=== PATIENT | male | born 1955 | race African-American/Black ===

== ENCOUNTER 2018-10-13 22:02 | Emergency (ER) | payer MEDICARE, MEDICAID ==
[~2018-10-13] VITALS: Ht 170.2 cm; Wt 82.0 kg
[2018-10-13] MEDS ORDERED: QUET400T PO (22:50)
[2018-10-13] MEDS ORDERED: ZYDS20 PO (22:50)
[2018-10-13] MEDS ORDERED: OLANZAPINE 10 MG/VIAL IM ONE (23:45)
[2018-10-13] MEDS ORDERED: DIPHENHYDRAMINE 25MG CAPSULE PO ONE (23:45)
[2018-10-13] MEDS ORDERED: LORAZEPAM 1MG TABLET PO ONE (23:45)
[2018-10-14 03:54] LABS: CHLORIDE 116 mEq/L (98-107)
[2018-10-14 03:59] LABS: ETHANOL BLOOD < 10 mg/dL
[2018-10-14 04:02] LABS: BASOPHILS % 0.1 % (0.0-2.0); EOSINOPHILS % 0.4 % (0.0-5.0); HEMATOCRIT. 50.4 % (42.0-52.0); HEMOGLOBIN. 16.7 g/dL (14.0-18.0); MEAN CORPUSCULAR HEMOGLOBIN 32.8 pg (28.0-32.0); MEAN CORPUSCULAR VOLUME 98.7 fL (80.0-94.0); MEAN PLATELET VOLUME 9.9 fl (7.4-10.4); NEUTROPHILS % 75.5 % (40.0-76.0); PLATELET 171 x1000/uL (130-400)
[2018-10-14 05:05] LABS: *AMPHETAMINES SCREEN URINE NEGATIVE (NEGATIVE); *BARBITURATES SCREEN URINE NEGATIVE (NEGATIVE); *BENZODIAZEPINES SCREEN URINE NEGATIVE (NEGATIVE); *COCAINE SCREEN URINE NEGATIVE (NEGATIVE); METHADONE URINE SCREEN NEGATIVE (NEGATIVE); OPIATES URINE SCREEN NEGATIVE (NEGATIVE)
[2018-10-14 05:07] LABS: CANNABINOID URINE SCREEN NEGATIVE (NEGATIVE); PHENCYCLIDINE URINE SCREEN NEGATIVE (NEGATIVE)
[2018-10-14] MEDS ORDERED: OLANZAPINE 10 MG/VIAL IM ONE ×2 (06:30→07:30)
[2018-10-14] MEDS ORDERED: LORAZEPAM 2MG/ML CPJ IM ONE (07:30)
[2018-10-14] MEDS ORDERED: HALOPERIDOL LACTATE 5MG/ML VIAL IM ONE (14:15)
[2018-10-15] MEDS ORDERED: OLANZAPINE 10 MG/VIAL IM ONE ×2 (01:30→22:45)
[2018-10-15 08:30] LABS: CHLORIDE 118 mEq/L (98-107)
[2018-10-15 18:08] LABS: BASOPHILS % 0.3 % (0.0-2.0); EOSINOPHILS % 0.8 % (0.0-5.0); HEMATOCRIT. 53.8 % (42.0-52.0); HEMOGLOBIN. 18.1 g/dL (14.0-18.0); LYMPHOCYTES % 16.1 % (20.0-50.0); MEAN CORPUSCULAR HEMOGLOBIN 33.6 pg (28.0-32.0); MEAN CORPUSCULAR VOLUME 99.5 fL (80.0-94.0); MEAN PLATELET VOLUME 9.6 fl (7.4-10.4); MONOCYTES % 6.4 % (2.0-8.0); NEUTROPHILS % 76.4 % (40.0-76.0); PLATELET 167 x1000/uL (130-400); RED BLOOD CELL COUNT 5.41 mill/uL (4.7-6.1); RED CELL DISTRIBUTION WIDTH 13.3 % (11.6-14.6)
[2018-10-15 18:13] LABS: CHLORIDE 111 mEq/L (98-107)
[2018-10-16] MEDS ORDERED: OLANZAPINE 10 MG/VIAL IM ONE ×2 (07:00→20:00)
[2018-10-16] MEDS ORDERED: LORAZEPAM 1MG TABLET PO ONE (13:30)
[2018-10-16] MEDS ORDERED: IBUPROFEN 600MG TABLET PO ONE (20:00)
[2018-10-16 22:11] VITALS: BP 142/90
== END 2018-10-16 22:34 ==
LOC: ER 22:41
DX: F23 Brief psychotic disorder (principal); R45.851 Suicidal ideations; R45.850 Homicidal ideations; R45.1 Restlessness and agitation; Z78.1 Physical restraint status; Z75.1 Person awaiting admission to adequate facility elsewhere
CPT/HCPCS: 93005; 96372; 99285; J1630; J2060; J3490; Q0163